=== PATIENT | male | born 1985 | race Caucasian/White ===

== ENCOUNTER 2020-08-08 13:02 | Emergency (ER) | payer BC, MEDICAID ==
--- NOTE | 2020-08-08 13:31 | ER Document Report ---
ED Medical Screen (RME) - General Chief Complaint: Nausea Stated Complaint: CHILLS,NAUSEA Time Seen by Provider: 08/08/20 13:23 Primary Care Provider: CECILE GRAHAM MD [Primary Care Provider] - Follow up as needed Mode of Arrival: Ambulatory Information source: Patient Notes: 35-year-old male patient presents the emergency department chief complaint of palpitations and "shakiness". Patient reports after he gets shaky he ate some sugar and his symptoms resolved. He reports he has had these symptoms for the last few days. He denies any chest pain or shortness of breath. He denies any fever, denies any concern for Covid. He does have history of hypertension, has not taken his medications. He has an appointment tomorrow with his primary care provider. Patient appears well, nontoxic. Lung sounds clear and equal bilaterally. I have greeted and performed a rapid initial assessment of this patient. A comprehensive ED assessment and evaluation of the patient, analysis of test results and completion of the medical decision making process will be conducted by additional ED providers. I have specifically instructed the patient or family members with the patient to immediately return to any nursing staff should anything change in the patient's condition or with their chief complaint. TRAVEL OUTSIDE OF THE [place] IN LAST 30 DAYS: No - Related Data Allergies/Adverse Reactions: No Known Allergies Allergy (Verified 08/08/20 13:20) Past Medical History - Social History Chew tobacco use (# tins/day): No Frequency of alcohol use: None Drug Abuse: None - Immunizations Hx Diphtheria, Pertussis, Tetanus Vaccination: Yes Physical Exam - Vital signs Vitals: Temp Pulse Resp BP Pulse Ox 98.3 F 101 H 16 177/86 H 98 08/08/20 13:10 08/08/20 13:10 08/08/20 13:10 08/08/20 13:10 08/08/20 13:10 Course - Vital Signs Vital signs: Temp Pulse Resp BP Pulse Ox 98.3 F 101 H 16 177/86 H 98 08/08/20 13:10 08/08/20 13:10 08/08/20 13:10 08/08/20 13:10 08/08/20 13:10 Doctor's Discharge - Discharge Referrals: CECILE GRAHAM MD [Primary Care Provider] - Follow up as needed
--- NOTE | 2020-08-08 13:56 | RADIOLOGY REPORT (SQ) ---
EXAM DESCRIPTION: CHEST SINGLE VIEW IMAGES COMPLETED DATE/TIME: 08/08/2020 1:44 pm REASON FOR STUDY: palpitations COMPARISON: 05/30/2010. EXAM PARAMETERS: NUMBER OF VIEWS: One view. TECHNIQUE: Single frontal radiographic view of the chest acquired. RADIATION DOSE: NA LIMITATIONS: None. FINDINGS: LUNGS AND PLEURA: No opacities, masses or pneumothorax. No pleural effusion. MEDIASTINUM AND HILAR STRUCTURES: No masses. Contour normal. HEART AND VASCULAR STRUCTURES: Heart normal in size. Normal vasculature. BONES: No acute findings. HARDWARE: None in the chest. OTHER: No other significant finding. IMPRESSION: NO ACUTE RADIOGRAPHIC FINDING IN THE CHEST. TECHNICAL DOCUMENTATION: JOB ID: [id number] 2010 [employer]- All Rights Reserved Reading location - IP/workstation name: [email or web address]
[2020-08-08 14:40] LABS: ABSOLUTE BASOPHILS # (AUTO) 0.1 10^3/uL (0.0-0.2); ABSOLUTE LYMPHOCYTES (AUTO) 1.2 10^3/uL (0.5-4.7); ABSOLUTE MONOCYTES (AUTO) 0.5 10^3/uL (0.1-1.4); ABSOLUTE NEUT (AUTO) 5.4 10^3/uL (1.7-8.2); BASOPHILS % (AUTO) 0.8 % (0-2); EOSINOPHILS % (AUTO) 0.1 % (0-6); HEMATOCRIT 46.3 % (37.9-51.0); HEMOGLOBIN 15.9 g/dL (13.5-17.0); LYMPHOCYTES % (AUTO) 17.2 % (13-45); MEAN CORPUSCULAR HGB CONC 34.2 g/dL (32.0-36.0); MEAN CORPUSCULAR VOLUME 88 fl (80-97); MONOCYTES % (AUTO) 6.6 % (3-13); PLATELET COUNT 298 10^3/uL (150-450); RED BLOOD COUNT 5.29 10^6/uL (4.35-5.55); RED CELL DISTRIBUTION WIDTH 13.5 % (11.5-14.0); SEGMENTED NEUTROPHILS % (AUTO) 75.3 % (42-78); TOTAL CELLS COUNTED % (AUTO) 100 %; WHITE BLOOD COUNT 7.1 10^3/uL (4.0-10.5)
[2020-08-08 14:57] LABS: ALBUMIN 4.7 g/dL (3.5-5.0); ALKALINE PHOSPHATASE 60 U/L (38-126); ANION GAP 12 (5-19); ASPARTATE AMINO TRANSFERASE 27 U/L (17-59); BILIRUBIN,DIRECT 0.3 mg/dL (0.0-0.4); BILIRUBIN,TOTAL 0.6 mg/dL (0.2-1.3); BLOOD UREA NITROGEN 16 mg/dL (7-20); CALCIUM 9.9 mg/dL (8.4-10.2); CARBON DIOXIDE 26 mmol/L (22-30); CHLORIDE 100 mmol/L (98-107); GLUCOSE 95 mg/dL (75-110); POTASSIUM 4.4 mmol/L (3.6-5.0); TOTAL PROTEIN 8.3 g/dL (6.3-8.2)
--- NOTE | 2020-08-08 15:24 | ER Document Report ---
ED General - General Chief Complaint: Nausea Stated Complaint: CHILLS,NAUSEA Time Seen by Provider: 08/08/20 13:23 Primary Care Provider: CECILE GRAHAM MD [Primary Care Provider] - Follow up as needed Mode of Arrival: Ambulatory Information source: Patient Notes: Patient is a 35-year-old -Portuguese male coming in today with a lots of seemingly unrelated complaints. He says he has episodes where he has teeth chattering chills which seem to improve when he eats foods with sugar in them. Size episodes of abnormal heart palpitations. He does not experience any pain or shortness of breath with these. In terms of medical problems he only suffers from hypertension. He is trying to control these without having to take lisinopril. TRAVEL OUTSIDE OF THE [place] IN LAST 30 DAYS: No - Related Data Allergies/Adverse Reactions: No Known Allergies Allergy (Verified 08/08/20 13:20) Past Medical History - General Information source: Patient - Social History Smoking Status: Never Smoker Chew tobacco use (# tins/day): No Frequency of alcohol use: None Drug Abuse: None Family History: Reviewed & Not Pertinent - Immunizations Hx Diphtheria, Pertussis, Tetanus Vaccination: Yes Review of Systems - Review of Systems Notes: Constitutional: No fevers. +chills EENT: No eye redness. No eye pain. No ear pain. No sore throat. Cardiovascular: No chest pain. +palpitations. Respiratory: No cough. No shortness of breath. No respiratory distress. Gastrointestinal: No abdominal pain. No nausea, vomiting, or diarrhea. Genitourinary: Atraumatic. No lesions. No pain. No discharge. Musculoskeletal: Atraumatic. No swelling. No deformities. Skin: No rash or lesions. Lymphatic: No swollen lymph nodes. Neurologic: No headache. No syncope. Psychiatric: No suicidal or homicidal ideation. Physical Exam - Vital signs Vitals: Temp Pulse Resp BP Pulse Ox 98.3 F 101 H 16 177/86 H 98 08/08/20 13:10 08/08/20 13:10 08/08/20 13:10 08/08/20 13:10 08/08/20 13:10 - Notes Notes: General: Well-developed, well-nourished. In no acute distress. Non-toxic a ppearing. Cardiac: Well-perfused. Regular rate and rhythm. No murmurs, rubs, or gallops. Pulmonary: No respiratory distress. No cyanosis. Bilateral lung saucedo are clear to auscultation. Abdominal: Non-distended. Non-rigid. Bowels sounds are present in all four quadrants. No guarding or rebound. HEENT: Head is atraumatic. Conjunctivae not reddened. No tearing. PERRL. EOMI. Orbits atraumatic. No periorbital swelling or erythema. Oropharynx is without erythema, swelling, or exudates. Neck: Supple. No adenopathy. No meningismus. Dermatologic: Warm with good turgor. No rash. Atraumatic. Chest: Atraumatic. No chest wall tenderness to palpation. Musculoskeletal: Moves all extremities well. No range of motion deficits. no muscular or joint tenderness. No paraspinal muscle tenderness. no midline spinal tenderness or step-off. Genitourinary: Examination deferred Neurologic: No gross neurologic deficits. Psychiatric: Normal mood. Course - Re-evaluation Re-evalutation: 08/08/20 15:20 Patient is young and quite healthy and obviously very concerned about his own health. He reports recently having a blood pressure of 176 systolic over 90s. Advised him that sometimes despite our best efforts to control blood pressure with the diet and exercise that sometimes medication is necessary, particularly if there is a familial predilection to hypertension which it seems that he has. He is encouraged to start back on his lisinopril and have his doctor follow him closely until he has achieved his goal. As for the chills that he is experiencing, I do not see anything in his lab work that would explain why he would have shaking chills. Definitely no sign of any type of infection. Question possibly something endocrine related. Definitely something that needs to be followed up as an outpatient if it persists. Patient reports that he is also here because he is concerned that he is at high risk for having a stroke. There is nothing about his physical exam that is concerning for stroke nor his history. Again I advised him that of anything that seems to be the biggest risk factor for stroke at this time is his uncontrolled hypertension. In terms of the palpitations, I think he would be well served to have an outpatient event monitor which she can get set up through his primary care doctor. 08/08/20 16:00 Patient is reassured that his blood sugar's fine and that we did not find anything abnormal in his lab work/work-up. He continues to be worried about his blood sugar being too low. I stated this is probably not the case. Recommended that if he is concerned about his sugar and he can always get a glucometer and check his blood sugar when he is feeling like it might be low. This should def initively help him know whether it is or is not. I recommend an event monitor to evaluate for the palpitations. Implored him of anything else that he came in for to get his blood pressure under control. Will discharge to primary care - Vital Signs Vital signs: Temp Pulse Resp BP Pulse Ox 98.3 F 101 H 16 177/86 H 98 08/08/20 13:10 08/08/20 13:10 08/08/20 13:10 08/08/20 13:10 08/08/20 13:10 - Laboratory Result Diagrams: 08/08/20 14:11 08/08/20 14:11 Laboratory results interpreted by me: 08/08/20 14:11 Total Protein 8.3 H - Diagnostic Test Radiology reviewed: Reports reviewed - EKG Interpretation by Me EKG shows normal: Sinus rhythm, Lewis, Intervals, QRS Complexes, ST-T Waves Rate: Normal Rhythm: NSR Discharge - Discharge Clinical Impression: Palpitations, Chills (without fever) Condition: Good Disposition: HOME, SELF-CARE Instructions: Palpitations (Irregular or Rapid Heartrate) ([facility]) Additional Instructions: Start back on your blood pressure medicine. Follow-up with your primary care doctor for an event monitor. You may like to purchase a glucometer to check your blood sugars if you are concerned Referrals: CECILE GRAHAM MD [Primary Care Provider] - Follow up as needed
[2020-08-08 16:25] VITALS: BP 167/93
--- NOTE | 2020-08-08 17:57 | EKG REPORT ---
SEVERITY:- OTHERWISE NORMAL ECG - SINUS RHYTHM BORDERLINE LEFT AXIS DEVIATION : Confirmed by: Joselito Sr MD 08-Aug-2020 17:56:24
== END 2020-08-08 16:24 | disposition home or self-care (01) ==
LOC: ER 13:02
DX: R00.2 Palpitations (principal); R68.83 Chills (without fever); R11.0 Nausea; I10 Essential (primary) hypertension
CPT/HCPCS: 36415; 71045; 80053; 84443; 85025; 93005; 93010; 99285